=== PATIENT | male | born 1995 | race Caucasian/White ===

== ENCOUNTER 2017-02-16 10:50 | Emergency (ER) | payer BC, MEDICAID ==
--- NOTE | 2017-02-16 11:06 | EDM.PDOC ---
ED HPI GENERAL MEDICAL PROBLEM - General Chief Complaint: Lower Extremity Injury/Pain Stated Complaint: INJURED LEG Time Seen by Provider: 02/16/17 11:05 Source of Information: Reports: Patient History Limitations: Reports: No Limitations - History of Present Illness INITIAL COMMENTS - FREE TEXT/NARRATIVE: HISTORY AND PHYSICAL: History of present illness: [] Review of systems: As per history of present illness and below otherwise all systems reviewed and negative. Past medical history: As per history of present illness and as reviewed below otherwise noncontributory. Surgical history: As per history of present illness and as reviewed below otherwise noncontributory. Social history: No reported history of drug or alcohol abuse. Family history: As per history of present illness and as reviewed below otherwise noncontributory. Physical exam: HEENT: Atraumatic, normocephalic, pupils reactive, negative for conjunctival pallor or scleral icterus, mucous membranes moist, throat clear, neck supple, nontender, trachea midline. Lungs: Clear to auscultation, breath sounds equal bilaterally, chest nontender. Heart: S1S2, regular, negative for clicks, rubs, or JVD. Abdomen: Soft, nondistended, nontender. Negative for masses or hepatosplenomegaly. Negative for costovertebral tenderness. Pelvis: Stable nontender. Genitourinary: Deferred. Rectal: Deferred. Extremities: Atraumatic, negative for cords or calf pain. Neurovascular unremarkable. Neuro: Awake, alert, oriented. Cranial nerves II through XII unremarkable. Cerebellum unremarkable. Motor and sensory unremarkable throughout. Exam nonfocal. Diagnostics: [] Therapeutics: [] Impression: [] Plan: [] Definitive disposition and diagnosis as appropriate pending reevaluation and review of above. Review of Systems - Review of Systems Review Of Systems: See Below (History of present illness) ED EXAM, GENERAL - Physical Exam Exam: See Below (History of present illness) Departure - Discharge Information Forms: ED Department Discharge
[2017-02-16] MEDS ORDERED: Ibuprofen 400 MG Tab PO ONE (11:10)
--- NOTE | 2017-02-16 11:16 | EDM.PDOC ---
ED HPI GENERAL MEDICAL PROBLEM - General Chief Complaint: Lower Extremity Injury/Pain Stated Complaint: INJURED LEG Time Seen by Provider: 02/16/17 11:05 Source of Information: Reports: Patient History Limitations: Reports: No Limitations - History of Present Illness INITIAL COMMENTS - FREE TEXT/NARRATIVE: HISTORY AND PHYSICAL: History of present illness: [Patient comes to the emergency room complaining of left ankle pain. States that he was walking this morning on the sidewalk while wearing flip-flops. His ankle rolled and he is now complaining of left lateral ankle pain. He denies falling. Rates his pain as 7-8 out of 10. Has not taken any medication for his symptoms. Did not have an ice pack at home, so came to the emergency room for evaluation. Patient denies falling and hurting himself, or hitting his head. He has no other complaints or concerns at this time.] Review of systems: As per history of present illness and below otherwise all systems reviewed and negative. Past medical history: As per history of present illness and as reviewed below otherwise noncontributory. Surgical history: As per history of present illness and as reviewed below otherwise noncontributory. Social history: No reported history of drug or alcohol abuse. Family history: As per history of present illness and as reviewed below otherwise noncontributory. Physical exam: Gen.: Well-developed well-nourished male, with intellectual delay. HEENT: Atraumatic, normocephalic. Extremities: Atraumatic in appearance bilaterally. Tender with palpation over the left lateral malleolus. No medial malleolus tenderness. No bruising swelling or erythema. No pain in calves or lower legs.Neurovascular unremarkable. Neuro: Awake, alert, oriented. Motor and sensory unremarkable throughout. Exam nonfocal. Diagnostics: [Left ankle x-ray] Therapeutics: [Ibuprofen 800 mg by mouth] Impression: [Left ankle pain] Plan: [Discussed w/ patient that ankle x-ray is negative for fracture. Recommend Rest , ice, compression, elevation. Tylenol or ibuprofen prn discomfort. Follow up w / PCP. 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 ] Definitive disposition and diagnosis as appropriate pending reevaluation and review of above. left foot Pain Score (Numeric/FACES): 9 - Related Data Allergies Allergy/AdvReac Type Severity Reaction Status Date / Time No Known Allergies Allergy Verified 02/16/17 11:20 Home Meds: Home Meds . [No Known Home Meds] 02/16/17 [History] Review of Systems - Review of Systems Review Of Systems: ROS reveals no pertinent complaints other than HPI. ED EXAM, GENERAL - Physical Exam Exam: See Below Free Text/Narrative:: HISTORY AND PHYSICAL: History of present illness: [] Review of systems: As per history of present illness and below otherwise all systems reviewed and negative. Past medical history: As per history of present illness and as reviewed below otherwise noncontributory. Surgical history: As per history of present illness and as reviewed below otherwise noncontributory. Social history: No reported history of drug or alcohol abuse. Family history: As per history of present illness and as reviewed below otherwise noncontributory. Physical exam: HEENT: Atraumatic, normocephalic, pupils reactive, negative for conjunctival pallor or scleral icterus, mucous membranes moist, throat clear, neck supple, nontender, trachea midline. Lungs: Clear to auscultation, breath sounds equal bilaterally, chest nontender. Heart: S1S2, regular, negative for clicks, rubs, or JVD. Abdomen: Soft, nondistended, nontender. Negative for masses or hepatosplenomegaly. Negative for costovertebral tenderness. Pelvis: Stable nontender. Genitourinary: Deferred. Rectal: Deferred. Extremities: Atraumatic, negative for cords or calf pain. Neurovascular unremarkable. Neuro: Awake, alert, oriented. Cranial nerves II through XII unremarkable. Cerebellum unremarkable. Motor and sensory unremarkable throughout. Exam nonfocal. Diagnostics: [] Therapeutics: [] Impression: [] Plan: [] Definitive disposition and diagnosis as appropriate pending reevaluation and review of above. Course - Vital Signs Last Recorded V/S: Last Vital Signs Temp 98.5 F 02/16/17 11:00 Pulse 66 02/16/17 12:14 Resp 20 02/16/17 11:00 BP 157/80 H 02/16/17 12:14 Pulse Ox 97 02/16/17 12:14 - Orders/Labs/Meds Orders: Active Orders 24 hr Category Date Time Status Ankle Min 3V Lt [CR] Stat Exams 02/16/17 11:10 Taken Meds: Medications Discontinued Medications Generic Name Dose Route Start Last Admin Trade Name Ambrosio PRN Reason Stop Dose Admin Ibuprofen 600 mg 02/16/17 11:10 Motrin PO 02/16/17 11:11 ONETIME ONE Ibuprofen 800 mg 02/16/17 11:26 02/16/17 11:39 Motrin PO 02/16/17 11:27 800 mg ONETIME ONE Administration Departure - Departure Time of Disposition: 12:10 Disposition: Home, Self-Care 01 Condition: Good Clinical Impression: Left ankle pain Qualifiers: Chronicity: acute Qualified Code(s): M25.572 - Pain in left ankle and joints of left foot - Discharge Information Instructions: Ankle Pain Referrals: PCP,None [Primary Care Provider] - Forms: ED Department Discharge Additional Instructions: The following information is given to patients seen in the emergency department who are being discharged to home. This information is to outline your options for follow-up care. We provide all patients seen in our emergency department with a follow-up referral. The need for follow-up, as well as the timing and circumstances, are variable depending upon the specifics of your emergency department visit. If you don't have a primary care physician on staff, we will provide you with a referral. We always advise you to contact your personal physician following an emergency department visit to inform them of the circumstance of the visit and for follow-up with them and/or the need for any referrals to a consulting specialist. The emergency department will also refer you to a specialist when appropriate. This referral assures that you have the opportunity for follow-up care with a specialist. All of these measure are taken in an effort to provide you with optimal care, which includes your follow-up. Under all circumstances we always encourage you to contact your private physician who remains a resource for coordinating your care. When calling for follow-up care, please make the office aware that this follow-up is from your recent emergency room visit. If for any reason you are refused follow-up, please contact the [facility] emergency department at and asked to speak to the emergency department charge nurse. [facility] [address] [place] [id number] Follow-up with your regular doctor and 3-4 days. Recommend rest your ankle but to continue to go about your normal daily activities, may apply ice as needed for discomfort, and may use Roberth wrap if it helps with the discomfort. Tylenol or ibuprofen as needed for discomfort. Return to ER as needed as discussed. - My Orders Last 24 Hours: My Active Orders 02/16/17 11:10 Ankle Min 3V Lt [CR] Stat - Assessment/Plan Last 24 Hours: My Active Orders 02/16/17 11:10 Ankle Min 3V Lt [CR] Stat
[2017-02-16] MEDS ORDERED: Ibuprofen 800 MG Tab PO ONE (11:26)
[2017-02-16 12:15] VITALS: BP 157/80
--- NOTE | 2017-02-18 11:04 | CR ---
EXAM DATE: 02/16/17 PATIENT'S AGE: 21 Patient: DULCE CHURCHILL Facility: [place], [place] Site . Site : 1995 Study: XRay Extremity Left [id number]/29/2017 11:46:09 AM Ordering Physician: Scar Lu Final Report: Left ankle 3 VIEWS INDICATION: Pain. IMPRESSION: No visualized fracture. Alignments anatomic. Joint spaces unremarkable. Dictated by Bassem Szymanski MD @ Feb 16 2017 11:47AM (Electronic Signature) Report Signed by Proxy. [facility] CENTERShakeel
== END 2017-02-16 12:17 | disposition home or self-care (01) ==
LOC: MW.ED 10:50
DX: M25.572 Pain in left ankle and joints of left foot (principal)
CPT/HCPCS: 73610; 99283; A9270; 99282

== ENCOUNTER 2021-08-13 19:43 | Emergency (ER) | payer BC, MEDICAID ==
[2021-08-13 19:53] VITALS: PULSE 96
[2021-08-13] MEDS ORDERED: Azithromycin 250 MG Tab PO STA (20:58)
[2021-08-13] MEDS ORDERED: Albuterol 8 GM Inhaler INH ONE (20:58)
[2021-08-13 21:02] VITALS: BP 138/77
== END 2021-08-13 21:28 | disposition home or self-care (01) ==
LOC: MW.ED 19:43
DX: R91.8 Other nonspecific abnormal finding of lung field (principal); E66.9 Obesity, unspecified; Z68.41 Body mass index [BMI] 40.0-44.9, adult; Z20.822 Contact with and (suspected) exposure to COVID-19
CPT/HCPCS: 71045; 99285; A9270

== ENCOUNTER 2021-08-15 10:20 | Inpatient (IN) | payer MEDICARE, MEDICAID ==
[2021-08-15] MEDS ORDERED: Sodium Chloride 0.9% 2.5 ML Syringe FLUSH PRN ×2 (10:22→12:50)
[2021-08-15] MEDS ORDERED: Dexamethasone 4 MG/ML SDV IVPUSH ONE (10:22)
[2021-08-15] MEDS ORDERED: Sodium Chloride 0.9% 10 ML Syringe FLUSH PRN ×2 (10:22→12:50)
[2021-08-15] MEDS ORDERED: REMDESIVIR 200 MG in Sodium Chloride 0.9% 250 ML IV ONE (10:22)
[2021-08-15 11:07] LABS: BLOOD UREA NITROGEN,BUN 10 mg/dL (7.0-18.0); CARBON DIOXIDE,CO2 26.1 mmol/L (21.0-32.0); CHLORIDE,CL 99 mmol/L (98-107); GLUCOSE RANDOM 109 mg/dL (74-106); POTASSIUM,K 3.4 mmol/L (3.5-5.1); SODIUM,NA 138 mmol/L (136-148)
[2021-08-15] MEDS ORDERED: Acetaminophen 325 MG Tab PO PRN (12:50)
[2021-08-15] MEDS ORDERED: Ondansetron 4 MG/2 ML SDV IVPUSH PRN (12:50)
[2021-08-15] MEDS ORDERED: Albuterol/Ipratropium 4 GM Inhalation Spray INH PRN (12:53)
[2021-08-15] MEDS ORDERED: Enoxaparin 40 MG/0.4 ML Syringe SUBCUT SCH (13:00)
[2021-08-15] MEDS ORDERED: guaiFENesin/Dextromethorphan 100-10 MG/5 ML Soln 10 ML Cup PO PRN (20:43)
[2021-08-15] MEDS ORDERED: Benzonatate 100 MG Cap PO PRN (20:44)
[2021-08-16 08:08] LABS: BLOOD UREA NITROGEN,BUN 13 mg/dL (7.0-18.0); CARBON DIOXIDE,CO2 27.9 mmol/L (21.0-32.0); CHLORIDE,CL 102 mmol/L (98-107); GLUCOSE RANDOM 92 mg/dL (74-106); POTASSIUM,K 3.7 mmol/L (3.5-5.1); SODIUM,NA 138 mmol/L (136-148)
[2021-08-16] MEDS: Dexamethasone 4 MG Tab PO SCH (09:08)
[2021-08-16] MEDS: Enoxaparin 40 MG/0.4 ML Syringe SUBCUT SCH ×2 (09:09→20:29)
[2021-08-16] MEDS: REMDESIVIR 100 MG in Sodium Chloride 0.9% 100 ML IV SCH (11:49)
[2021-08-16] MEDS: OXcarbazepine 300 MG Tab PO SCH (15:00)
[2021-08-16] MEDS: buPROPion 150 MG Tab.ER PO SCH (20:29)
[2021-08-17] MEDS: Pantoprazole 40 MG Tab.CR PO SCH (06:36)
[2021-08-17 07:47] LABS: BLOOD UREA NITROGEN,BUN 16 mg/dL (7.0-18.0); CARBON DIOXIDE,CO2 28.5 mmol/L (21.0-32.0); CHLORIDE,CL 102 mmol/L (98-107); GLUCOSE RANDOM 85 mg/dL (74-106); POTASSIUM,K 3.5 mmol/L (3.5-5.1); SODIUM,NA 140 mmol/L (136-148)
[2021-08-17] MEDS: Enoxaparin 40 MG/0.4 ML Syringe SUBCUT SCH ×2 (08:29→20:52)
[2021-08-17] MEDS: Dexamethasone 4 MG Tab PO SCH (08:30)
[2021-08-17] MEDS: OXcarbazepine 300 MG Tab PO SCH (08:30)
[2021-08-17] MEDS: amLODIPine 5 MG Tab PO SCH (08:31)
[2021-08-17] MEDS: REMDESIVIR 100 MG in Sodium Chloride 0.9% 100 ML IV SCH (08:33)
[2021-08-17] MEDS: buPROPion 150 MG Tab.ER PO SCH (20:52)
[2021-08-18] MEDS: Pantoprazole 40 MG Tab.CR PO SCH (06:34)
[2021-08-18 07:59] LABS: BLOOD UREA NITROGEN,BUN 15 mg/dL (7.0-18.0); CARBON DIOXIDE,CO2 29.4 mmol/L (21.0-32.0); CHLORIDE,CL 104 mmol/L (98-107); GLUCOSE RANDOM 89 mg/dL (74-106); POTASSIUM,K 3.7 mmol/L (3.5-5.1); SODIUM,NA 143 mmol/L (136-148)
[2021-08-18] MEDS: Dexamethasone 4 MG Tab PO SCH (09:04)
[2021-08-18] MEDS: OXcarbazepine 300 MG Tab PO SCH (09:05)
[2021-08-18] MEDS: Enoxaparin 40 MG/0.4 ML Syringe SUBCUT SCH ×2 (09:05→22:02)
[2021-08-18] MEDS: amLODIPine 5 MG Tab PO SCH (09:05)
[2021-08-18] MEDS: REMDESIVIR 100 MG in Sodium Chloride 0.9% 100 ML IV SCH (09:06)
[2021-08-18] MEDS: buPROPion 150 MG Tab.ER PO SCH (22:02)
[2021-08-19] MEDS: Pantoprazole 40 MG Tab.CR PO SCH (07:27)
[2021-08-19 08:32] LABS: BLOOD UREA NITROGEN,BUN 12 mg/dL (7.0-18.0); CARBON DIOXIDE,CO2 30.1 mmol/L (21.0-32.0); CHLORIDE,CL 106 mmol/L (98-107); GLUCOSE RANDOM 86 mg/dL (74-106); POTASSIUM,K 3.9 mmol/L (3.5-5.1); SODIUM,NA 142 mmol/L (136-148)
[2021-08-19] MEDS: REMDESIVIR 100 MG in Sodium Chloride 0.9% 100 ML IV SCH (09:18)
[2021-08-19] MEDS: amLODIPine 5 MG Tab PO SCH (09:18)
[2021-08-19] MEDS: Dexamethasone 4 MG Tab PO SCH (09:18)
[2021-08-19] MEDS: Enoxaparin 40 MG/0.4 ML Syringe SUBCUT SCH (09:18)
[2021-08-19] MEDS: OXcarbazepine 300 MG Tab PO SCH (09:18)
[2021-08-19 16:33] VITALS: BP 128/72; PULSE 68
== END 2021-08-19 17:35 | disposition home or self-care (01) | DRG 177 ==
LOC: MW.ED 10:20 → MW.MS 11:32
PROVIDERS: ADMIT Student in an Organized Health Care Education/Training Program; ATTEND Student in an Organized Health Care Education/Training Program
PROC: XW033E5 Introduction of Remdesivir Anti-infective into Peripheral Vein, Percutaneous Approach, New Technology Group 5 (ICD-10-PCS; principal; 2021-08-15)
PROC: 3E0333Z Introduction of Anti-inflammatory into Peripheral Vein, Percutaneous Approach (ICD-10-PCS; 2021-08-15)
DX: U07.1 COVID-19 (principal); R09.02 Hypoxemia; J96.01 Acute respiratory failure with hypoxia; F84.0 Autistic disorder; F90.9 Attention-deficit hyperactivity disorder, unspecified type; F32.A Depression, unspecified; F31.9 Bipolar disorder, unspecified; I10 Essential (primary) hypertension; I45.10 Unspecified right bundle-branch block; J45.909 Unspecified asthma, uncomplicated; Z86.16 Personal history of COVID-19; Z79.899 Other long term (current) drug therapy; Z90.89 Acquired absence of other organs
CPT/HCPCS: 36415; 71045; 80053; 82248; 83605; 84484; 85025; 86140; 87040 ×2; 93005; 99285; U0002; 93306; 94667; A9270-GY; J0248; J1100; J1650; J7050; J8540